=== PATIENT | female | born 1945 | race Caucasian/White ===

== ENCOUNTER 2017-01-28 09:46 | Emergency (ER) | payer OTHER ==
[2017-01-28] VITALS (7 sets, daily range): BP systolic 83–131; BP diastolic 47–88; PULSE 65–69; RESP 16; TEMP 97.9; O2SAT 97–100
[~2017-01-28] VITALS: Ht 172.7 cm; Wt 85.0 kg
[~2017-01-28 09:46] MED LIST: ASPI1TAB7 PO; ATOR20TA PO; CARV3.125 PO; CO Q60CA2 PO; CYCL-36 PO; FA-8800C2 PO; HYDR200T3 PO; HYDROCHLOROQUINE PO; IPRA.5I; METH2.5 PO; NORC7.5T PO; OMEP20TA PO; POLY119S PO; PRIN5TAB PO; PROBCAP4 PO; TAB-TAB PO; ULTR50TA PO; VITA200017 PO
--- NOTE | 2017-01-28 10:13 | PD ---
HPI Chief Complaint: GI Complaint Time Seen by Provider: 09:58 Travel History International Travel<30 days: Yes Contact w/Intl Traveler<30days: [place] Country Traveled to: [place] Traveled to known affect area: No History of Present Illness HPI The patient was seen and examined in the presence of the nurse. This patient was vacationing in [place] last week when she developed diarrhea. She's had several episodes daily for the last week. She had 2 episodes this morning. Denies blood in the diarrhea. No fever or abdominal pain. She normally is hypertensive and took her blood pressure pills this morning. She then became lightheaded. She arrives hypotensive with a blood pressure of 84 systolic. He was moderately severe. No syncope. Duration of illness is 1 week. PFSH Past Medical History Arthritis: No Asthma: No Blood Disorders: No Heart Rhythm Problems: No Cancer: Yes (BREAST LT) Cardiovascular Problems: Yes (AMI, CABG) High Cholesterol: Yes Chemotherapy: No Chest Pain: Yes (ONSET TODAY ) Congestive Heart Failure: No COPD: No Cerebrovascular Accident: No Endocrine: No Gastrointestinal Disorders: Yes (INDEGESTION) GERD: Yes Genitourinary: Yes Headaches: Yes Hepatitis: No Hiatal Hernia: No Hypertension: Yes Immune Disorder: No Implanted Vascular Access Dvce: Yes Kidney Stones: Yes Musculoskeletal: No Neurologic: No Psychiatric: No Reproductive: No Respiratory: Yes (COPD) Migraines: No Myocardial Infarction: Yes Radiation Therapy: Yes (8 WEEKS ) Renal Failure: No Seizures: No Sleep Apnea: No Ulcer: Yes (DUOD ULCER YEARS AGO) Menopausal: Yes Past Surgical History Abdominal Surgery: No AICD: No Appendectomy: No Body Medical Devices: TOTAL R SHOULDER REPLACEMENT Cardiac Surgery: Yes (QUADRUPLE BYPASS) Cholecystectomy: No Ear Surgery: No Endocrine Surgery: No Eye Surgery: No Genitourinary Surgery: No Gynecologic Surgery: No Joint Replacement: Yes (SHOULDER RT) Oral Surgery: No Pacemaker: No Thoracic Surgery: No Other Surgery: Yes (2004 LYMPH NODE REMOVED AND LUMPECTOMY L BREAST) Social History Alcohol Use: Yes (OCCASIONAL) Tobacco Use: No Substance Use: No Allergies-Medications (Allergen,Severity, Reaction): Coded Allergies: Aleve (Verified Allergy, Severe, Swelling, 01/28/17) SWELLING OF TONGUE, HIVES AND ITCHING Reported Meds & Prescriptions Reported Meds & Active Scripts Active Reported Methotrexate 2.5 Mg Tab 7.25 Mg PO Q7D Anoro Ellipta Inh (Umeclidinium/Vilanterol) 62.5-25 Mcg/Act Aero 1 Puff INH DAILY Lortab (Hydrocodone-Acetaminophen) 7.5-325 Mg Tab 1 Tab PO Q6H PRN Lisinopril 5 Mg Tab 5 Mg PO BID Aspirin EC (Aspirin) 81 Mg Tabdr 81 Mg PO BID Hydroxychloroquine (Hydroxychloroquine Sulfate) 200 Mg Tab 200 Mg PO DAILY Takw with food Omeprazole 20 Mg Tab 20 Mg PO DAILY Atorvastatin (Atorvastatin Calcium) 20 Mg Tab 20 Mg PO HS Carvedilol 6.25 Mg Tab 6.25 Mg PO BID [Hydrochloroquine] 200 Mg PO DAILY Review of Systems General / Constitutional: No: Fever Eyes: No: Visual changes HENT: Positive: Lightheadedness, No: Headaches Cardiovascular: No: Chest Pain or Discomfort Respiratory: No: Shortness of Breath Gastrointestinal: Positive: Diarrhea, No: Abdominal Pain Genitourinary: No: Dysuria Musculoskeletal: Positive: Weakness, No: Pain Skin: No Rash Neurologic: Positive: Weakness, Dizziness Psychiatric: No: Depression Endocrine: No: Polydipsia Hematologic/Lymphatic: No: Easy Bruising Physical Exam Narrative GENERAL: Well-nourished, well-developed patient with lightheadedness and frequent diarrhea. SKIN: Focused skin assessment reveals no rash and nodules. Skin is Warm and dry. HEAD: Atraumatic. Normocephalic. EYES: Pupils equal and round. No scleral icterus. No injection or drainage. ENT: No nasal bleeding or discharge. Mucous membranes pink and moist. NECK: Trachea midline. No JVD. No midline tenderness. No bruising or swelling. CARDIOVASCULAR: Regular rate and rhythm. No murmur appreciated. Patient is tachycardic at 120 RESPIRATORY: No accessory muscle use. Clear to auscultation. Breath sounds equal bilaterally. GASTROINTESTINAL: Abdomen soft, non-tender, nondistended. Hepatic and splenic margins not palpable. MUSCULOSKELETAL: No obvious deformities. No clubbing. No cyanosis. No edema. NEUROLOGICAL: Awake and alert. No obvious cranial nerve deficits. Motor grossly within normal limits. Normal speech. PSYCHIATRIC: Appropriate mood and affect; insight and judgment normal. Data Data Last Documented VS Vital Signs Date Time Temp Pulse Resp B/P Pulse Ox O2 Delivery O2 Flow Rate FiO2 01/28/17 11:42 66 16 106/61 97 Room Air 01/28/17 09:49 97.9 Orders Iv Access Insert/Monitor (01/28/17 10:06) Complete Blood Count With Diff (01/28/17 10:06) Basic Metabolic Panel (Bmp) (01/28/17 10:06) Sodium Chlor 0.9% 1000 Ml Inj (Ns 1000 M (01/28/17 10:15) Sodium Chlor 0.9% 1000 Ml Inj (Ns 1000 M (01/28/17 10:15) Labs Laboratory Tests Test 01/28/17 10:20 White Blood Count 11.1 TH/MM3 Red Blood Count 3.38 MIL/MM3 Hemoglobin 10.9 GM/DL Hematocrit 32.5 % Mean Corpuscular Volume 95.9 FL Mean Corpuscular Hemoglobin 32.3 PG Mean Corpuscular Hemoglobin 33.6 % Concent Red Cell Distribution Width 14.3 % Platelet Count 177 TH/MM3 Mean Platelet Volume 9.4 FL Neutrophils (%) (Auto) 81.4 % Lymphocytes (%) (Auto) 10.4 % Monocytes (%) (Auto) 6.2 % Eosinophils (%) (Auto) 0.7 % Basophils (%) (Auto) 1.3 % Neutrophils # (Auto) 9.0 TH/MM3 Lymphocytes # (Auto) 1.2 TH/MM3 Monocytes # (Auto) 0.7 TH/MM3 Eosinophils # (Auto) 0.1 TH/MM3 Basophils # (Auto) 0.1 TH/MM3 CBC Comment AUTO DIFF Differential Comment AUTO DIFF CONFIRMED Sodium Level 142 MEQ/L Potassium Level 4.4 MEQ/L Chloride Level 109 MEQ/L Carbon Dioxide Level 24.8 MEQ/L Anion Gap 8 MEQ/L Blood Urea Nitrogen 50 MG/DL Creatinine 1.70 MG/DL Estimat Glomerular Filtration 30 ML/MIN Rate Random Glucose 149 MG/DL Calcium Level 8.9 MG/DL MDM Medical Decision Making Medical Screen Exam Complete: Yes Emergency Medical Condition: Yes Medical Record Reviewed: Yes Differential Diagnosis Dehydration, hypovolemic shock, gastroenteritis, food poisoning, colitis Narrative Course I have reviewed the patient's electronic medical record. Patient was last here March 2016 with abdominal pain Patient arrives here with critical vital signs of 120 pulse and 84 systolic blood pressure. She looks clinically dry She's been having frequent diarrhea for one week IV placed I gave her 2 liters of normal saline IV bolus Extended cardiac monitoring shows sinus tachycardia which has gradually improved with IV fluid administration CBC fairly normal Metabolic profile suggests dehydration as evidenced by azotemia with BUN of 50 and creatinine 1.7 Patient did not produce any stool here for testing Patient has significant improved after 2 separate IV fluid boluses I don't feel she requires hospitalization at this point Will do her best to keep hydrated and follow-up with her primary physician Critical Care Narrative Aggregate critical care time was 33 minutes. Time to perform other separately billable procedures was not included in the critical care time. My time did not include minutes spent treating any other patients simultaneously or on activities that did not directly contribute to the patient's treatment. The services I provided to this patient were to treat and/or prevent clinically significant deterioration that could result in: Hypovolemic shock, cardiopulmonary arrest, renal failure I provided critical care services requiring my management, as noted below: Chart data review, documentation time, medication orders and management, vital sign assessments/reviewing monitor data, ordering and reviewing lab tests, ordering and interpreting/reviewing x-rays and diagnostic studies, care of the patient and discussion of the patient with the admitting physicians. Diagnosis Primary Impression: Dehydration, severe Additional Impressions: Hypotension Qualified Code: I95.9 - Hypotension, unspecified hypotension type Tachycardia Diarrhea Qualified Code: R19.7 - Diarrhea, unspecified type Additional Instructions: The patient was advised to follow up with their physician and return if they worsen. Stay hydrated and drink a lot of fluid such as Gatorade or Powerade Med/Other Pt SpecificInfo: Other Disposition: 01 DISCHARGE HOME Condition: Stable Estuardo Alegria MD January 28, 2017 10:13
[2017-01-28] MEDS ORDERED: SODIUM CHLOR 0.9% 1000 ML INJ 1,000 ML IV ONE ×2 (10:15)
[2017-01-28 10:31] LABS: BASOPHIL # 0.1 TH/MM3 (0-0.2); BASOPHIL % 1.3 % (0.0-2.0); EOSINOPHIL # 0.1 TH/MM3 (0-0.4); EOSINOPHIL % 0.7 % (0.0-4.0); HEMATOCRIT 32.5 % (35.0-46.0); LYMPH % 10.4 % (9.0-44.0); LYMPHOCYTE # 1.2 TH/MM3 (1.0-4.8); MEAN CELL VOLUME 95.9 FL (80.0-100.0); MEAN CORPUSCULAR HEMOGLOBIN 32.3 PG (27.0-34.0); MEAN CORPUSCULAR HGB CONC 33.6 % (32.0-36.0); MONO % 6.2 % (0.0-8.0); NEUT % 81.4 % (16.0-70.0); PLATELET COUNT 177 TH/MM3 (150-450); RED BLOOD COUNT 3.38 MIL/MM3 (4.00-5.30); RED CELL DISTRIBUTION WIDTH 14.3 % (11.6-17.2); WHITE BLOOD COUNT 11.1 TH/MM3 (4.0-11.0)
[2017-01-28 10:41] LABS: HEMO FLAGS AUTO DIFF
[2017-01-28 10:43] LABS: POTASSIUM 4.4 MEQ/L (3.5-5.1)
[2017-01-28 10:46] LABS: BICARBONATE 24.8 MEQ/L (21.0-32.0)
[2017-01-28 11:06] LABS: SCAN/DIFF AUTO DIFF CONFIRMED
[2017-01-28] MEDS ORDERED: ASPI81TA11 PO (11:48)
[2017-01-28] MEDS ORDERED: LISI-519 PO (11:48)
[2017-01-28] MEDS ORDERED: ATOR20TA15 PO (11:48)
[2017-01-28] MEDS ORDERED: CARV6.252 PO (11:48)
[2017-01-28] MEDS ORDERED: HYDR-3534 PO (11:48)
[2017-01-28] MEDS ORDERED: METH2.5T PO (11:48)
[2017-01-28] MEDS ORDERED: OMEP20TA PO (11:48)
[2017-01-28] MEDS ORDERED: HYDR200T3 PO (11:48)
[2017-01-28] MEDS ORDERED: UMEC1AER INH (11:48)
[2017-01-28] MEDS ORDERED: FOLI400T PO (12:09)
== END 2017-01-28 12:32 | disposition home or self-care (01) ==
LOC: PHED 09:46
DX: E86.0 Dehydration (principal); I95.9 Hypotension, unspecified; R00.0 Tachycardia, unspecified; R19.7 Diarrhea, unspecified
CPT/HCPCS: 80048; 85025; 96360; 96361; 99291; J7030

== ENCOUNTER 2017-11-30 07:50 | Emergency (ER) | payer OTHER ==
[~2017-11-30] VITALS: Ht 170.2 cm; Wt 80.5 kg
[~2017-11-30 07:50] MED LIST changes: -ASPI1TAB7 PO; +ASPI81TA23 PO; -ATOR20TA PO; +ATOR20TA15 PO; -CARV3.125 PO; +CARV6.252 PO; -CO Q60CA2 PO; -CYCL-36 PO; -FA-8800C2 PO; +FOLI400T PO; +HYDR-3534 PO; -IPRA.5I; +LISI-519 PO; -METH2.5 PO; +METH2.5T PO; -NORC7.5T PO; -OMEP20TA PO; +OMEP20TA93 PO; -POLY119S PO; -PRIN5TAB PO; -PROBCAP4 PO; -TAB-TAB PO; -ULTR50TA PO; +UMEC1AER INH; -VITA200017 PO
[2017-11-30 08:21] VITALS: BP 147/72; PULSE 63; RESP 17; TEMP 98.8; O2SAT 99
[2017-11-30] MEDS ORDERED: HYDR25TA5 PO (09:18)
[2017-11-30] MEDS ORDERED: VESI5TAB2 PO (09:18)
[2017-11-30] MEDS ORDERED: TETANUS/DIPHTHERIA TOXOID ADULT 0.5 ML VIAL IM ONE (10:30)
--- NOTE | 2017-11-30 10:46 | RADRPT ---
EXAM DATE/TIME: 11/30/2017 10:25 [facility] COMPARISON: No previous studies available for comparison. INDICATIONS : Fall, left knee pain and abrasion. MEDICAL HISTORY : None. SURGICAL HISTORY : left knee surgery ENCOUNTER: Initial ACUITY: 2 days PAIN SCORE: 2/10 LOCATION: Left knee FINDINGS: Four view examination of the left knee demonstrates no evidence of fracture or dislocation. There is diffuse osteopenia. There are multiple surgical clips in the medial knee and leg. The articular surfa raymond are intact. There is mild soft tissue prominence along the medial portion of the knee. CONCLUSION: Osteopenia and soft tissue swelling with no acute fracture or malalignment. Boris Camacho MD on November 30, 2017 at 10:43 Board Certified Radiologist. This report was verified electronically.
[2017-11-30] MEDS ORDERED: CEPH-460 PO (11:07)
--- NOTE | 2017-11-30 11:08 | PD ---
HPI Chief Complaint: Skin Problem Time Seen by Provider: 09:45 Travel History International Travel<30 days: No Contact w/Intl Traveler<30days: No Traveled to known affect area: No History of Present Illness HPI This Is a 72-year-old female who had a mechanical trip and fall yesterday injuring her left ankle and both knees. She denies head injury or loss of consciousness. She is not anticoagulated. He has left knee pain which is worse with weightbearing and relieved with rest. Symptom severity is moderate. She denies headache, neck pain, chest pain, shortness of breath, abdominal pain, paresthesia or weakness of the extremities. PFSH Past Medical History Arthritis: No Asthma: No Blood Disorders: No Heart Rhythm Problems: No Cancer: Yes (BREAST LT) Cardiac Catheterization: Yes Cardiovascular Problems: Yes (AMI, CABG) High Cholesterol: Yes Chemotherapy: No Chest Pain: Yes (ONSET TODAY ) Congestive Heart Failure: No COPD: No Cerebrovascular Accident: No Endocrine: No Gastrointestinal Disorders: Yes (INDEGESTION) GERD: Yes Genitourinary: Yes Headaches: Yes Hepatitis: No Hiatal Hernia: No Hypertension: Yes Immune Disorder: No Implanted Vascular Access Dvce: Yes Kidney Stones: Yes Musculoskeletal: No Neurologic: No Psychiatric: No Reproductive: No Respiratory: Yes (COPD) Migraines: No Myocardial Infarction: Yes Radiation Therapy: Yes Renal Failure: No Seizures: No Sleep Apnea: No Ulcer: Yes (DUOD ULCER YEARS AGO) Menopausal: Yes Past Surgical History Abdominal Surgery: No AICD: No Appendectomy: No Body Medical Devices: TOTAL R SHOULDER REPLACEMENT Cardiac Surgery: Yes (QUADRUPLE BYPASS) Cholecystectomy: Yes Coronary Artery Bypass Graft: Yes Ear Surgery: No Endocrine Surgery: No Eye Surgery: No Genitourinary Surgery: No Gynecologic Surgery: No Joint Replacement: Yes (SHOULDER RT) Oral Surgery: Yes (deviated septum) Pacemaker: No Thoracic Surgery: No Other Surgery: Yes (2004 LYMPH NODE REMOVED AND LUMPECTOMY L BREAST) Social History Alcohol Use: Yes (OCCASIONAL- wine) Tobacco Use: No (quit 2008) Substance Use: No Allergies-Medications (Allergen,Severity, Reaction): Coded Allergies: naproxen (Unverified Allergy, Severe, Swelling, 11/30/17) SWELLING OF TONGUE, HIVES AND ITCHING Reported Meds & Prescriptions Reported Meds & Active Scripts Active Reported Hydrochlorothiazide 25 Mg Tab 25 Mg PO DAILY PRN Vesicare (Solifenacin) 5 Mg Tab 5 Mg PO DAILY Methotrexate 2.5 Mg Tab 7.25 Mg PO Q7D Anoro Ellipta Inh (Umeclidinium/Vilanterol) 62.5-25 Mcg/Act Aero 1 Puff INH DAILY Lisinopril 5 Mg Tab 5 Mg PO BID Aspirin EC (Aspirin) 81 Mg Tabdr 81 Mg PO BID Hydroxychloroquine (Hydroxychloroquine Sulfate) 200 Mg Tab 200 Mg PO DAILY Takw with food Omeprazole 20 Mg Tab 20 Mg PO DAILY Atorvastatin (Atorvastatin Calcium) 20 Mg Tab 20 Mg PO HS Carvedilol 6.25 Mg Tab 6.25 Mg PO BID [Hydrochloroquine] 200 Mg PO DAILY Review of Systems Except as stated in HPI: all other systems reviewed are Neg General / Constitutional: No: Fever Eyes: No: Visual changes HENT: No: Headaches Cardiovascular: No: Chest Pain or Discomfort Respiratory: No: Shortness of Breath Gastrointestinal: No: Abdominal Pain Genitourinary: No: Dysuria Skin: No Rash Neurologic: No: Weakness Physical Exam Narrative GENERAL: Alert and well-appearing 72-year-old SKIN: Abrasion/skin tear to bilateral anterior knees. Skin tears/Flap laceration to left ankle medial aspect no tendon or vascular injury. The edges well approximated. No active bleeding. HEAD: Normocephalic. Atraumatic EYES: Pupils equal, round, reactive. EOMs intact. No injection or drainage. NECK: Supple, trachea midline. No midline spine tenderness CARDIOVASCULAR: Regular rate and rhythm without murmurs, gallops, or rubs. No chest wall tenderness RESPIRATORY: Breath sounds equal bilaterally. No accessory muscle use. GASTROINTESTINAL: Abdomen soft, non-tender, nondistended. MUSCULOSKELETAL: No cyanosis, or edema. +TTP left anterior knee. Patient is able to flex and extend both knees and ankles. Normal sensation. 2+ DP pulse. Brisk cap refill. See skin noted above BACK: Nontender spine. without obvious deformity. No CVA tenderness. Data Data Last Documented VS Vital Signs Date Time Temp Pulse Resp B/P (MAP) Pulse Ox O2 Delivery O2 Flow Rate FiO2 11/30/17 08:21 98.8 63 17 147/72 (97) 99 Room Air Orders Orders Knee, Complete (4vws) (11/30/17 ) Tetanus/Diphtheria Tox Adult (Tetanus/Di (11/30/17 10:30) Wound Care (11/30/17 10:17) MDM Medical Decision Making Medical Screen Exam Complete: Yes Emergency Medical Condition: Yes Differential Diagnosis Abrasion, laceration, patella fracture, contusion Narrative Course 72-year-old female here with left knee contusion, abrasions, flap laceration to the left ankle caused by a trip and fall yesterday afternoon. Her extremities are neurovascularly intact. She is well-appearing. Wound closure of the left ankle laceration not indicated at this time due to time since injury. X-ray is negative for fracture. All wounds were cleansed and dressed. Prophylactic antibiotics prescribed. Patient offered pain medication and declined. Return precautions were discussed. Patient verbalizes understanding and agrees to plan. Diagnosis Primary Impression: Skin tear of lower leg without complication Qualified Codes: S81.812A - Laceration without foreign body, left lower leg, initial encounter Additional Impression: Contusion, knee Qualified Codes: S80.02XA - Contusion of left knee, initial encounter Referrals: Primary Care Physician Additional Instructions: Cleansed the areas daily with soap and water. Apply thin layer of antibiotic ointment and a nonstick dressing. Antibiotics as directed. Follow-up with her primary doctor. Scripts Cephalexin (Keflex) 500 Mg Capsule 500 MG PO Q6H for Infection for 7 Days, #28 CAP 0 Refills Prov: Meg Healy 11/30/17 Disposition: 01 DISCHARGE HOME Condition: Stable Meg Healy Nov 30, 2017 11:08
== END 2017-11-30 11:20 | disposition home or self-care (01) ==
LOC: PHED 07:50 → PHEFT 11:20
DX: S81.812A Laceration without foreign body, left lower leg, initial encounter (principal); S80.02XA Contusion of left knee, initial encounter; E78.00 Pure hypercholesterolemia, unspecified; K21.9 Gastro-esophageal reflux disease without esophagitis; I10 Essential (primary) hypertension; J44.9 Chronic obstructive pulmonary disease, unspecified; I25.2 Old myocardial infarction; W01.0XXA Fall on same level from slipping, tripping and stumbling without subsequent striking against object, initial encounter; Z23 Encounter for immunization
CPT/HCPCS: 73564; 90471; 90714